=== PATIENT | female | born 1945 | race Caucasian/White ===

== ENCOUNTER 2018-10-03 20:33 | Emergency (ER) | payer MEDICARE, OTHER ==
--- NOTE | 2018-10-03 20:50 | ED Physician Documentation ---
PD HPI FEMALE - Stated complaint Stated Complaint: FEMALE - Chief complaint Chief Complaint: Abd Pain - History obtained from History obtained from: Patient - History of Present Illness Timing - onset: Today Timing - details: Abrupt onset Pain level max: 0 Similar symptoms before: Has not had sx before Recently seen: Clinic - Additional information Additional information: Three days ago, patient had RUQ pain that gradually spontaneously resolved and has not recurred. This was associated with subsequent hard stool. Patient saw PMD (Dr. Perez) earlier today; patient says blood tests and urinalysis were performed and that there was blood in urine (microscopically) but no prescriptions given and further w/u depending on pending test results. She says she has had a colonoscopy approximately 1 year ago, showed diverticulosis. Tonight after taking a walk, she noticed small amount brown spotting in underwear near rectum, and this is her chief c/o tonight. No h/o GI bleeding. Does not take blood thinners. Review of Systems Constitutional: denies: Fever, Chills, Sweats Respiratory: denies: Dyspnea GI: reports: Abdominal Pain (3 days ago but resolved and has not recurred), Bloody / black stool (passed small amt. blood per rectum as noted in HPI). 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 - Allergies Allergies/Adverse Reactions: Allergies Allergy/AdvReac Type Severity Reaction Status Date / Time Penicillins Allergy Unknown Verified 10/03/18 20:41 - Living Situation Living Arrangement: reports: At home PD ED PE NORMAL - Vitals Vital signs reviewed: Yes - General General: Alert and oriented X 3, No acute distress, Well developed/nourished - HEENT HEENT: Moist mucous membranes - Cardiac Cardiac: RRR, No murmur, No gallop, No rub - Respiratory Respiratory: No respiratory distress, Clear bilaterally - Abdomen Abdomen: Soft, Non tender, Non distended - Derm Derm: Normal color, Warm and dry PD ED PE EXPANDED - Rectal Rectal: Heme Occult Pos - QC +, Manufacturing Technician present (JAKI Altamirano). No: Mass, Hemorrhoid, Fissure Results - Vitals Vitals: Vital Signs - 24 hr 10/03/18 10/03/18 10/03/18 20:37 20:52 22:06 Temperature 36.8 C 36.9 C Heart Rate 84 67 Respiratory 16 16 18 Rate Blood Pressure 143/82 H 125/84 H O2 Saturation 97 98 Oxygen O2 Source Room air - Labs Labs: Laboratory Tests 10/03/18 10/03/18 10/03/18 21:00 21:02 21:02 WBC 3.8 L RBC 4.22 Hgb 12.5 Hct 37.5 MCV 88.8 MCH 29.7 MCHC 33.4 RDW 13.2 Plt Count 189 MPV 8.6 Neut # (Auto) 2.1 Lymph # (Auto) 1.1 L [place] # (Auto) 0.5 Eos # (Auto) 0.1 Baso # (Auto) 0.0 Absolute Nucleated RBC 0.00 Nucleated RBC % 0.0 PT 11.9 INR 1.1 Sodium Potassium Chloride Carbon Dioxide Anion Gap BUN Creatinine Estimated GFR (MDRD) Glucose Calcium Total Bilirubin AST ALT Alkaline Phosphatase Total Protein Albumin Globulin Albumin/Globulin Ratio Lipase Urine Color YELLOW Urine Clarity CLEAR Urine pH 6.0 Ur Specific Brawley <=1.005 Urine Protein NEGATIVE Urine Glucose (UA) NEGATIVE Urine Ketones NEGATIVE Urine Occult Blood TRACE-INTA Urine Nitrite NEGATIVE Urine Bilirubin NEGATIVE Urine Urobilinogen 0.2 (NORMAL) Ur Leukocyte Esterase NEGATIVE Ur Microscopic Review NOT INDICATED Urine Culture Comments NOT INDICATED 10/03/18 21:02 WBC RBC Hgb Hct MCV MCH MCHC RDW Plt Count MPV Neut # (Auto) Lymph # (Auto) [place] # (Auto) Eos # (Auto) Baso # (Auto) Absolute Nucleated RBC Nucleated RBC % PT INR Sodium 134 L Potassium 4.0 Chloride 98 L Carbon Dioxide 28 Anion Gap 8.0 BUN 19 Creatinine 1.0 Estimated GFR (MDRD) 54 L Glucose 102 H Calcium 8.9 Total Bilirubin 0.3 AST 23 ALT 16 Alkaline Phosphatase 73 Total Protein 6.7 Albumin 3.9 Globulin 2.8 Albumin/Globulin Ratio 1.4 Lipase 37 Urine Color Urine Clarity Urine pH Ur Specific Brawley Urine Protein Urine Glucose (UA) Urine Ketones Urine Occult Blood Urine Nitrite Urine Bilirubin Urine Urobilinogen Ur Leukocyte Esterase Ur Microscopic Review Urine Culture Comments PD MEDICAL DECISION MAKING - ED course Complexity details: reviewed results, re-evaluated patient, considered santiago mccauley, d/w patient ED course: Remains in NAD on reevaluation. Test results d/w patient. She has not had any more episodes of bleeding during ED stay. Departure - Departure Disposition: 01 Home, Self Care Clinical Impression: Lower gastrointestinal bleeding Condition: Good Instructions: ED Hematochezia Stable Follow-Up: Colby Perez MD [Primary Care Provider] - Discharge Date/Time: 10/03/18 22:13
[2018-10-03 21:09] LABS: BASOPHILS % (AUTO) 0.8 %; EOSINOPHILS # (AUTO) 0.1 10^3/uL (0.0-0.7); EOSINOPHILS % (AUTO) 1.9 %; HGB - HEMOGLOBIN 12.5 g/dL (12.0-16.0); LYMPHOCYTES # (AUTO) 1.1 10^3/uL (1.5-3.5); LYMPHOCYTES % (AUTO) 29.3 %; MEAN CORPUSCULAR HEMOGLOBIN 29.7 pg (27.0-31.0); MEAN CORPUSCULAR HGB CONC 33.4 g/dL (32.0-36.0); MEAN CORPUSCULAR VOLUME 88.8 fL (81.0-99.0); MEAN PLATELET VOLUME 8.6 fL (7.9-10.8); MONOCYTES # (AUTO) 0.5 10^3/uL (0.0-1.0); MONOCYTES % (AUTO) 11.9 %; NEUTROPHILS # (AUTO) 2.1 10^3/uL (1.5-6.6); NEUTROPHILS % (AUTO) 56.1 %; PLT - PLATELET COUNT 189 10^3/uL (130-450); RED BLOOD COUNT 4.22 10^6/uL (4.20-5.40); RED CELL DISTRIBUTION WIDTH 13.2 % (12.0-15.0); WHITE BLOOD COUNT 3.8 x10^3/uL (4.8-10.8)
[2018-10-03 21:16] LABS: BILIRUBIN,URINE NEGATIVE (NEGATIVE); GLUCOSE, URINE (UA) NEGATIVE (NEGATIVE); KETONES,URINE (UA) NEGATIVE (NEGATIVE); LEUKOCYTE ESTERASE, URINE NEGATIVE (NEGATIVE); NITRITE,URINE NEGATIVE (NEGATIVE); OCCULT BLOOD,URINE TRACE-INTA (NEGATIVE); PROTEIN,URINE NEGATIVE (NEGATIVE); UROBILINOGEN,URINE 0.2 (NORMAL) E.U./dL (NORMAL)
[2018-10-03 21:21] LABS: ALBUMIN 3.9 g/dL (3.2-5.5); ALBUMIN/GLOBULIN RATIO 1.4 (1.0-2.2); BILIRUBIN,TOTAL 0.3 mg/dL (0.2-1.0); CALCIUM 8.9 mg/dL (8.5-10.3); TOTAL PROTEIN 6.7 g/dL (6.7-8.2)
[2018-10-03 21:26] LABS: CLARITY,URINE CLEAR (CLEAR)
[2018-10-03 21:30] LABS: INR 1.1 (0.8-1.2); PT - PROTHROMBIN TIME 11.9 secs (9.9-12.6)
[2018-10-03 22:09] VITALS: BP 125/84
== END 2018-10-03 22:13 | disposition home or self-care (01) ==
LOC: ED 20:33
DX: K92.1 Melena (principal)
CPT/HCPCS: 36415; 80053; 81001; 81003; 83690; 85025; 85610; 87086; 99283

== ENCOUNTER 2020-08-08 09:09 | Emergency (ER) | payer MEDICARE, OTHER ==
[2020-08-08 09:17] VITALS: BP 105/80
--- NOTE | 2020-08-08 09:24 | ED Physician Documentation ---
PD HPI LOWER EXT INJURY - Stated complaint Stated Complaint: LT FT INJ - Chief complaint Chief Complaint: Ext Problem - History obtained from History obtained from: Patient - History of Present Illness PD HPI LOW EXT INJURY LOCATION: Left, Toe Type of injury: Blunt / blow (she struck foot on door and it hit between 5th and 4th toes, with lateral movement of 5th toe. Pain at base of 5th toe but also at MTP.) Where injury occurred: Home Timing - onset: Today Timing - details: Abrupt onset, Still present Worsened by: Moving, Palpating, Other (walking on lateral part of the foot) Associated symptoms: Swelling. 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 - Present Medications Home Medications: Ambulatory Orders Medication Instructions Recorded Confirmed No Known Home Medications 08/08/20 08/08/20 - Allergies Allergies/Adverse Reactions: Allergies Allergy/AdvReac Type Severity Reaction Status Date / Time Penicillins Allergy Unknown Verified 08/08/20 09:15 - Social History Does the pt smoke?: No Smoking Status: Never smoker PD ED PE NORMAL - Vitals Vital signs reviewed: Yes - General General: Alert and oriented X 3, No acute distress, Well developed/nourished - Extremities Extremities: Other (left 5th to base and MTP area with swelling and tenderness. No obvious deformity. ) - Neuro Neuro: Alert and oriented X 3, No motor deficit Results - Vitals Vitals: Vital Signs - 24 hr 08/08/20 09:14 Temperature 36.2 C L Heart Rate 90 Respiratory 18 Rate Blood Pressure 105/80 O2 Saturation 99 Oxygen O2 Source Room air - Rads (name of study) foot xray Radiology: Prelim report reviewed (no fractures), See rad report PD MEDICAL DECISION MAKING - ED course Complexity details: reviewed results, considered differential, d/w patient Departure - Departure Disposition: 01 Home, Self Care Clinical Impression: Sprain of toe, fifth, left Qualifiers: Encounter type: initial encounter Qualified Code(s): S93.505A - Unspecified sprain of left lesser toe(s), initial encounter Condition: Stable Record reviewed to determine appropriate education?: Yes Instructions: ED Sprain Foot Follow-Up: Colby Perez MD [Primary Care Provider] - Comments: No obvious fractures on your x-ray. I would anticipate then the pain of this will be several days to week and resolution. Work on decreasing the swelling today with elevation ice and less activity. Firm soled shoe or the "postop shoe" to decrease the movement with walking in that area. Continue this as needed for comfort. Progress activity as able. Tylenol or ibuprofen as needed for pains. I would anticipate improvement over several days and resolution probably about a week or so. Discharge Date/Time: 08/08/20 10:06
--- NOTE | 2020-08-08 10:15 | XRAY Report ---
PROCEDURE: Foot 3 View LT INDICATIONS: struck foot on door; pain little toe and 5th MC TECHNIQUE: 3 views of the foot were acquired. COMPARISON: None. FINDINGS: Bones: No acute fractures or dislocations. No suspicious bony lesions. There is moderate hallux briana naomy. Moderate degenerative changes are seen at the first metatarsophalangeal joint. Soft tissues: No suspicious soft tissue calcification is seen. IMPRESSION: 1. No acute osseous abnormality. If there is clinical concern or persistent symptoms, additional rola ging such as repeat radiographs or advanced imaging (e.g. CT, MRI) may be helpful for further evaluat ion. 2. Moderate hallux valgus. Moderate degenerative changes at the first metatarsophalangeal joint. Reviewed by: Kalin Hubbard MD on 08/08/2020 10:14 AM PDT Approved by: Kalin Hubbard MD on 08/08/2020 10:14 AM PDT Station ID: [id number]
== END 2020-08-08 10:06 | disposition home or self-care (01) ==
LOC: ED 09:09
DX: S93.505A Unspecified sprain of left lesser toe(s), initial encounter (principal); W22.01XA Walked into wall, initial encounter; Y92.009 Unspecified place in unspecified non-institutional (private) residence as the place of occurrence of the external cause
CPT/HCPCS: 99282; 99283